=== PATIENT | female | born 1990 | race Caucasian/White ===

== ENCOUNTER 2021-06-19 09:47 | Day surgery (SDC) | payer BC ==
[2021-06-19 10:24] LABS: Specific Gravity 1.025 (1.005-1.030)
[2021-06-19] MEDS ORDERED: CEFAZOLIN SODIUM 1 GM/VIAL ONE (10:40)
[2021-06-19] MEDS ORDERED: Ringers Lactate 1,000 ML IV ONE (10:40)
[2021-06-19] MEDS ORDERED: NA CHLORIDE 0.9% 50 ML ONE (10:40)
[2021-06-19] MEDS ORDERED: LIDOCAINE 1% 20 ML MDV ONE (11:36)
[2021-06-19] MEDS ORDERED: propofoL 200 MG/20 ML VIAL IV ONE (12:24)
[2021-06-19] MEDS ORDERED: LIDOCAINE 1% MPF 5 ML VIAL ONE (12:24)
[2021-06-19] MEDS ORDERED: FENTANYL CITR 100 MCG/2 ML ONE (12:24)
[2021-06-19] MEDS ORDERED: MIDAZOLAM HCL 2 MG/2 ML INJ ONE (12:24)
[2021-06-19] MEDS ORDERED: ONDANSETRON 4 MG/2 ML VIAL ONE (12:28)
[2021-06-19] MEDS ORDERED: ROCURONIUM 50 MG/5 ML VIAL IV ONE (13:20)
--- NOTE | 2021-06-19 13:44 | P.BOP ---
Preoperative diagnosis: tender scalp mass Postoperative diagnosis: same Primary procedure: Excisional biopsy of tender scalp mass 2.5 x 2.5 cm Estimated blood loss: <10cc Specimen: mass Findings: mass Anesthesia: General Complications: None Transferred to: Recovery Room Condition: Good
[2021-06-19] MEDS ORDERED: MEPERIDINE HCL 25 MG/ML SYR ONE (14:01)
[2021-06-19 15:30] VITALS: TEMP 98; O2SAT 98
[2021-06-19 15:31] VITALS: BP 102/56
--- NOTE | 2021-06-20 02:33 | DS ---
Date of Discharge: 06/19/2021 Preoperative Diagnosis: Tender scalp mass. Postoperative Diagnosis: Tender scalp mass. Procedure: Excisional biopsy of tender scalp mass. Disposition: Home. Activity: As tolerated. No heavy lifting. Plan: Follow up in my office in 1 week, call for appointment at [phone]. Keep area dry for 48 hour s, then may clean with soap and water. For medications, see orders. KATHERINE/NIMA Voice ID: [id number] Report ID: [id number]
--- NOTE | 2021-06-20 02:54 | OP ---
Date of Procedure: 06/19/2021 Surgeon: Kevin Mcdonald MD Preoperative Diagnosis: Tender scalp mass. Postoperative Diagnosis: Tender scalp mass. Procedure: Excisional biopsy of tender scalp mass 2.5 x 2.5 cm. Estimated Blood Loss: Less than 10 mL. Specimen: Mass. Anesthesia: General plus local. Indication: This is the case of a 30-year-old with a tender mass on the scalp region creating some a lopecia and creating some tenderness. The benefits, alternatives, and risks of excision of that mass were explained, which include, but not limited to infection, bleeding, damage to adjacent structures , anesthesia complication, recurrence, ID, and even . She also understands the risks of alopeci a and chronic pain. Procedure In Detail: The area was marked by me and the patient in the holding room. The patient was brought to the operating room placed in supine position. Then, the patient was placed in prone posi tion with proper protection. The scalp area was prepped and draped in sterile fashion. We proceeded then, after a time-out, to make an incision on the skin to include the mass all the way down to gale a. The mass was excised. Hemostasis was obtained and then we proceeded to inject local anesthetic, obtained hemostasis after irrigation and then closed the area with a suture mattress 3-0 nylon interr upted multiple times. No bleeding. The area was covered with sterile dressings. The patient tolera ho the procedure well. Sponge count and instrument counts were correct. Patient was sent to the recovery in stable condition. KATHERINE/NIMA Voice ID: [id number] Report ID: [id number]
== END 2021-06-19 15:00 | disposition home or self-care (01) ==
LOC: OR 09:47
PROVIDERS: ATTEND Surgery
PROC: 0HB0XZZ Excision of Scalp Skin, External Approach (ICD-10-PCS; principal; 2021-06-19 13:45)
DX: L72.11 Pilar cyst (principal); Z20.822 Contact with and (suspected) exposure to COVID-19
CPT/HCPCS: 81025; 88304; 11423; U0003; J2704; J2250; J3010; J2175; J7120; J2405; J0690; 88305